=== PATIENT | female | born 2000 | race Caucasian/White ===

== ENCOUNTER 2020-01-07 12:05 | Emergency (ER) | payer BC, SELFPAY ==
--- NOTE | 2020-01-07 12:08 | ED.URI ---
HPI - URI/Sore Throat General Chief Complaint: Upper Respiratory Infection Stated Complaint: upper respiratory infection Time Seen by Provider: 01/07/20 12:08 Source: patient and RN notes reviewed History of Present Illness HPI Narrative: Patient is a 19-year-old female who presents the urgent care with complaints of 1 week history of cough, sinus drainage, and intermittent low-grade fevers and nasal congestion. Patient states that she was tested last week for COVID which was negative. Patient has been using ibuprofen and a cold and flu medication [id number]. 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 No other acute complaints. No acute distress noted. Patient aware of the plan of care. Some parts of this dictation were generated by voice recognition software and may contain typographical and/or grammatical inaccuracies. Related Data Allergies Allergy/AdvReac Type Severity Reaction Status Date / Time No Known Allergies Allergy Verified 01/07/20 12:19 Review of Systems Review of Systems: Narrative: CONSTITUTIONAL: Reports of intermittent low-grade fevers EYES: Denies visual changes, redness, or discharge. ENT: Reports of sinus congestion, nasal congestion, mild scratchy throat and sinus drainage CARDIOVASCULAR: Denies chest pain, palpitations, or edema. RESPIRATORY: Denies cough or dyspnea. GASTROINTESTINAL: Denies abdominal pain, nausea, vomiting, or diarrhea. GENITOURINARY: Denies dysuria or hematuria. SKIN: Denies rash or itching. MUSCULOSKELETAL: Denies back pain, joint pain, or myalgia. NEUROLOGIC: Reports of mild intermittent headaches All other systems reviewed are negative, except as documented in HPI. PMFSH Social History Social History Gender identity (if verbalized by the patient): Female Comments At the time of my signature, I reviewed and agree with the nursing past medical, surgical, social, and family history. There is no relevant family history pertinent to the patient complaint. Exam Narrative: Exam Narrative: GENERAL: This is a well-nourished, well-developed patient, in no apparent distress. HEAD: normocephalic, atraumatic. Mild frontal sinus pressure EYES: PERRL. Sclera clear/white. Vision is grossly intact. EARS: External ears normal, auditory canals clear and without drainage, TMs normal without perforation. Hearing grossly intact. NOSE: External nose normal with no obvious nasal discharge, nares without redness, no rhinorrhea. THROAT: Mucous membranes moist, mild erythema noted posterior oropharynx with mild postnasal drainage. NECK: Neck supple CARDIOVASCULAR: Regular rate and rhythm without murmurs, gallops, or rubs. RESPIRATORY: Clear to auscultation. Breath sounds equal bilaterally. No wheezes, rales, or rhonchi. SKIN: warm, intact with no suspicious lesions or rash, good texture and turgor. NEURO: awake, alert, and oriented to person, place and time. There were no obvious focal neurologic abnormalities. EXTREMITIES: No clubbing, cyanosis, or edema. Course Vital Signs Vital signs: Vital Signs Temperature 98.2 F 01/07/20 12:19 Pulse Rate 88 01/07/20 12:19 Respiratory Rate 01/07/20 12:19 Blood Pressure 132/75 01/07/20 12:19 Pulse Oximetry 100 01/07/20 12:19 Temperature 98.2 F 01/07/20 12:19 Pulse Rate 88 01/07/20 12:19 Respiratory Rate 01/07/20 12:19 Blood Pressure 132/75 01/07/20 12:19 Pulse Oximetry 100 01/07/20 12:19 Reviewed MDM - URI/Sore Throat MDM Narrative Medical decision making narrative: Advised the patient to continue using Tylenol/ibuprofen as needed for fever pain. Use a [id number] oral antihistamine such as Claritin or Zyrtec. Use Flonase nasal spray as directed. Complete steroid regimen as prescribed. Make sure to eat and drink with the medication. Use a humidifier at night and do not sleep with the windows open or a fan. Increase fluids. Follow-up with
[2020-01-07 12:19] VITALS: BP 132/75; PULSE 88; RESP 20; TEMP 36.8; O2SAT 100
== END 2020-01-07 12:39 | disposition home or self-care (01) ==
PROVIDERS: Emergency Provider Nurse Practitioner Family
DX: J32.9 Chronic sinusitis, unspecified (principal)
CPT/HCPCS: 99213; G0463

== ENCOUNTER → 2020-05-03 15:46 | Outpatient (CLI) | payer BC, SELFPAY ==
--- NOTE | ~2020-05-03 | XR_ITS ---
EXAMINATION: XR shoulder RT min 2V DATE: 05/03/2020 16:06 INDICATION: Right arm pain. TECHNIQUE: 4 views of right shoulder were obtained. COMPARISON: None. FINDINGS: Bone alignment is normal. No fracture. Joint spaces are well maintained. IMPRESSION: 1. Normal right shoulder. Reviewed, dictated and finalized at location A. SCREENER IMPRESSION: 1. Normal right shoulder.
== END ==
PROVIDERS: PCP Internal Medicine; Visit Provider Internal Medicine
DX: M79.601 Pain in right arm (principal)
CPT/HCPCS: 73030